=== PATIENT | female | born 1935 | race Two or more races ===

== ENCOUNTER 2020-11-06 14:37 | Inpatient (IN) | payer OTHER ==
[~2020-11-06] VITALS: Ht 99.1 cm; Wt 81.6 kg
[2020-11-06] MEDS ORDERED: SYNTHROID88 MCG (15:47)
[2020-11-06] MEDS ORDERED: CYMBALTA30 MG (15:47)
[2020-11-06] MEDS ORDERED: BACLOFEN10 MG (15:48)
[2020-11-06] MEDS ORDERED: NEURONTIN800 MG (15:48)
[2020-11-11] MEDS ORDERED: ELIQUIS2.5 MG PO (11:00)
[2020-11-11] MEDS ORDERED: ULTRACET PO (11:00)
[2020-11-11] MEDS ORDERED: LEVOFLOXACIN750 MG PO (11:00)
== END 2020-11-11 16:56 | disposition home or self-care (01) | DRG 919 ==
LOC: ER 14:37 → EDBD 15:02 → MEDJ 18:29
PROVIDERS: ADMIT Orthopaedic Surgery; ATTEND Orthopaedic Surgery
PROC: 8E0ZXY6 Isolation (ICD-10-PCS; principal; 2020-11-06)
PROC: 4A033R1 Measurement of Arterial Saturation, Peripheral, Percutaneous Approach (ICD-10-PCS; 2020-11-06)
PROC: 0JQN3ZZ Repair Right Lower Leg Subcutaneous Tissue and Fascia, Percutaneous Approach (ICD-10-PCS; 2020-11-06)
PROC: 4A12X4Z Monitoring of Cardiac Electrical Activity, External Approach (ICD-10-PCS; 2020-11-07)
DX: T81.31XA Disruption of external operation (surgical) wound, not elsewhere classified, initial encounter (principal); U07.1 COVID-19; Z20.828 Contact with and (suspected) exposure to other viral communicable diseases; W18.39XA Other fall on same level, initial encounter; I10 Essential (primary) hypertension; E03.9 Hypothyroidism, unspecified